=== PATIENT | male | born 1960 | race Caucasian/White ===

== ENCOUNTER 2019-01-25 15:13 | Outpatient (CLI) | payer BC ==
--- NOTE | 2019-01-25 15:44 | RAD ---
TWO VIEWS OF THE LUMBAR SPINE: 01/25/19 HISTORY: Lumbar radiculopathy. Follow-up from surgery. FINDINGS: Five lumbar type vertebral bodies. Unilateral left sided transpedicular screw at L4 and L5. No periha rdware lucency. No significant spondylolisthesis or spondylolysis. There is a disc prosthesis at L4- L5. IMPRESSION: Lumbar fusion at L4-L5 without complication. POS: OFF
== END 2019-01-25 15:14 | disposition home or self-care (01) ==
LOC: TBSIIMAG 15:13
PROVIDERS: ATTEND Neurological Surgery
DX: M54.16 Radiculopathy, lumbar region (principal); Z98.1 Arthrodesis status
CPT/HCPCS: 72100

== ENCOUNTER 2019-03-15 14:17 | Outpatient (CLI) | payer BC ==
--- NOTE | 2019-03-15 14:38 | RAD ---
EXAM: XR Lumbar Spine 2 Or 3 View PROVIDED CLINICAL HISTORY: Lumbar radiculopathy. History of prior low back surgery. COMPARISON: 01/25/2019. FINDINGS: Again noted are postsurgical changes related to posterior fusion at the L4-5 level with unilateral le ft-sided pedicular screws and posterior rods transfixing this level. Intradiscal prosthesis is stable in position. No hardware complication is seen. Degenerative changes are again seen throughout the lumbar spine with narrowing of the intervertebral disc spaces at all levels as well as osteophytes seen anteriorly. Endplate degenerative changes are again seen at the L1-2 level. No fracture or subluxation is seen involving lumbar spine. Calcifications are again seen overlying th e prostate gland. Views of the signed report lumbar spine are stable compared to prior exam. IMPRESSION: Stable postoperative and degenerative changes the lumbar spine.
== END 2019-03-15 14:18 | disposition home or self-care (01) ==
LOC: TBSIIMAG 14:17
PROVIDERS: ATTEND Neurological Surgery
DX: M47.26 Other spondylosis with radiculopathy, lumbar region (principal); Z98.890 Other specified postprocedural states
CPT/HCPCS: 72100